=== PATIENT | female | born 1935 | race Caucasian/White ===

== ENCOUNTER → 2016-07-20 | Outpatient (CLI) | payer MEDICARE ==
--- NOTE | 2016-07-20 12:41 | XCELERA REPORT ---
[address] [address] Lower Extremity Venous Evaluation Name: ADDI FLORES Age: 80 yrs Gender: Female : 1935 Patient Status: Outpatient Patient Location: Study Date: 07/20/2016 10:47 AM Procedure: Color flow and duplex imaging of the veins of the right lower extremity as well as the left Common Femoral vein. Reason For Study: RLE PAIN / SWELLING Ordering Physician: FELICIANO BRAUN Performed By: Khari Rodriguez Right Sided Venous Evaluation Normal vessel filling wall to wall, compression and augmentation as well as Colour flow down to the infrageniculate veins. Left Sided Venous Evaluation The left common femoral vein is fully compressible. Spontaneous and phasic flow is present in the left common femoral vein. Interpretation Summary No duplex evidence of DVT or obstruction in the right lower extremity nor in the left Common Femoral vein. : FELICIANO BRAUN > Jesús Valadez
== END ==
LOC: SP 10:29
PROVIDERS: ATTEND Orthopaedic Surgery Sports Medicine
DX: M79.661 Pain in right lower leg (principal); M79.89 Other specified soft tissue disorders
CPT/HCPCS: 93971